=== PATIENT | male | born 1985 | race Caucasian/White ===

== ENCOUNTER 2016-12-23 11:52 | Emergency (ER) | payer OTHER | END 2016-12-23 13:07 | disposition home or self-care (01) | LOC: ER1 11:52 | DX: T15.02XA Foreign body in cornea, left eye, initial encounter (principal); F17.290 Nicotine dependence, other tobacco product, uncomplicated; X58.XXXA Exposure to other specified factors, initial encounter; Z88.1 Allergy status to other antibiotic agents | CPT/HCPCS: 99283 ==